=== PATIENT | female | born 1985 | race Two or more races ===

== ENCOUNTER 2024-08-02 14:08 | Emergency (ER) | payer SELFPAY ==
--- NOTE | ~2024-08-02 | US_ITS ---
CLINICAL HISTORY: THREE MONTHS ABDOMINAL PAIN, VOMITING US OB 1st trimester transabdominal Comparison: None Findings: Single intrauterine . CRL: 6.71 cm. EGA: 13 weeks 0 days. YVETTE: 02/07/2025. Previously established gestational age: N/A. Normal yolk sac . Cardiac activity: 161 bpm. No subchorionic bleed. IMPRESSION: Single intrauterine estimated 13 weeks 0 days gestational age by today's ultrasound criteria. This document has been electronically signed by: Tim Peña MD on 08/02/2024 16:22:23
[2024-08-02 14:35] VITALS: BP 127/71; PULSE 77; RESP 16; TEMP 36.7; O2SAT 99; BMI 31.7
--- NOTE | 2024-08-02 14:38 | ED_ITS ---
HPI - General Adult General Chief complaint: Nausea/Vomiting/Diarrhea Stated complaint: , vomitting Time Seen by Provider: 08/02/24 18:45 Source: patient Mode of arrival: ambulatory Limitations: language barrier (Upper Sorbian speaking certified ophthalmic medical technician utilized) History of Present Illness ED Provider: tyler wallis np HPI narrative: Patient is a 38-year-old female G3 T1 L1 with LMP 04/22/2024 presenting for evaluation of nausea and vomiting over the past 2-3 weeks in the setting of . She was last seen by OBGYN in [place] 07/20/2024, she has recently moved here and unfortunately has not yet established health insurance nor OBGYN care as she will be remaining here through the duration of her . She states that she has experienced some nausea and vomiting with her prior pregnancies. It is sporadic throughout the day but typically worse in the morning. She states that there are times throughout the day where she is able to eat and drink without vomiting afterwards. Initial nursing triage states that she ?can not keep anything down? but upon further clarification this is not in fact the case. She has been taking a vitamin. She has had some mild lower abdominal cramping since the beginning of her states that this is no worse than previously, no acute change. Denies associated fevers or chills. No genitourinary symptoms. Denies any known sick contacts Related Data Allergies Allergy/AdvReac Type Severity Reaction Status Date / Time No Known Allergies Allergy Verified 08/02/24 14:38 Review of Systems 2 Review of Systems: Yes all other systems are reviewed and are negative PMFSH Past Medical History Attestation statement: The following information was validated with the patient. Source: old records reviewed Social History Social History Advance Directives: No Advance Directives Information Provided: Yes Do you have a plan to hurt others: No Plan Physical Exam ED Vital Signs: Vital Signs - 24 hr 08/02/24 14:35 08/02/24 19:45 08/02/24 19:48 Temperature 98.1 F 98.2 F 98.2 F Pulse Rate 77 70 70 Respiratory Rate 16 18 18 Blood Pressure 127/71 114/70 114/70 Pulse Oximetry 99 97 97 Oxygen Delivery Method Room Air Room Air Room Air BMI result Body Mass Index 31.7 Appearance: Alert.?Oriented to person, place and time. No acute distress.?Normal affect. Eyes: Pupils equal, round and reactive to light.? ENT: Pharynx normal.?? Neck: Normal inspection.? Neck supple.?? CVS: Heart sounds normal. Normal heart rate and rhythm.? Pulses normal.?? Respiratory: No respiratory distress.? Lung sounds clear to auscultation bilaterally?? Abdomen: Soft and non-tender. Normoactive bowel sounds. No CVAT. Skin: Skin warm and dry.? Normal skin color.? ? Extremities: No lower extremity edema.? Neuro: Moves all extremities spontaneously. Sensation intact bilaterally. Ambulates with normal steady gait. Course Course Course Narrative: rme: 38-YEAR-OLD FEMALE FEMALE LAST MENSTRUATION 112/24 PRESENTS TO ED FOR NAUSEA VOMITING FOR 2 WEEKS WITH ABDOMINAL CRAMPING. PATIENT DENIES ANY VAGINAL BLEEDING. LABS ULTRASOUND ORDERED. Medical Decision Making Medical Decision Making [facility] Narrative: Patient is a 38-year-old female LMP 04/19 presenting for nausea and vomiting in the setting of over the past few weeks, intermittent throughout the day. Has not tried any remedies at home. Discussed the use of vitamin B6 in and Unisom in the evening. She is working on establishing care for OBGYN once she obtains her medical health insurance. Her abdominal examination is benign. She has intermittent abdominal cramping which is brief and episodic has been occurring since early . Ultrasound today shows a single live intrauterine with gestation of 13 weeks. Her viral serologies are negative. No significant electrolyte derangement. No SAMARA. LFTs within normal range, lipase is normal. CBC without leukocytosis or thrombocytopenia, has a mild microcytic anemia that does not meet transfusion criteria no active bleeding. Urinalysis niitially concerning for urogenital contamination, clarification with batch attendant this was in fact NOT a clean catch specimen, on repeat with appropriate cleansing, without compelling evidence of infection. Tolerating oral intake while in the emergency department. At this time stable for discharge home, discussed use of vitamin B6 for nausea and vomiting in , strict return precautions and establishing OBGYN care. Differential Diagnosis Differential Diagnoses: The differential diagnosis associated with the presentation includes (See narrative above) Admission/Observation Consideration of admission/observation: Escalation of care including admission/observation considered (She is tolerating oral intake, no indication for hospitalization due to intractable nausea and vomiting/severe dehydration) Lab Data [facility] Lab Attestation statement: I reviewed the patient's lab results. (See narrative above) 08/02/24 14:54 08/02/24 14:54 Labs: Lab Results 08/02/24 08/02/24 08/02/24 Range/Units 14:54 19:43 20:57 WBC 7.2 (4.8-10.8) X10*3/uL RBC 4.41 (4.20-5.50) X10*6/uL Hgb 11.9 L (12.0-16.0) g/dl Hct 35.2 L (37.0-47.0) % MCV 79.8 L (80.0-98.0) fL MCH 27.0 (27.0-33.0) pg MCHC 33.8 (31.0-35.0) g/dl RDW 15.3 (11.0-16.0) % Plt Count 283 (160-400) X10*3/uL MPV 10.4 (9.4-12.3) fL Immature Gran % (Auto) 0.3 (0.0-0.4) % Neut % (Auto) 68.5 (45-73) % Lymph % (Auto) 23.2 (20-40) % [place] % (Auto) 6.3 (2-11) % Eos % (Auto) 1.4 (0-4) % Baso % (Auto) 0.3 (0-2) % Lymph # (Auto) 1.7 (1.2-4.9) X10*3/uL [place] # (Auto) 0.5 (0.1-1.2) X10*3/uL Eos # (Auto) 0.1 (0.0-0.4) X10*3/uL Baso # (Auto) 0.0 (0.0-0.2) X10*3/uL Abs Immat Gran (auto) 0.02 (0.00-0.03) X10*3/uL Absolute Neuts (auto) 4.9 (2.0-8.3) x10*3/uL Absolute Nucleated RBC 0.000 (0.0-0.012) X10*3/uL Nucleated RBC % (auto) 0.0 (0.0-0.2) /100WBC PT 13.3 H (10.9-12.4) SEC INR 1.1 (0.9-1.1) APTT 27.8 (26.0-36.8) SEC Sodium 136 (135-145) mmol/L Potassium 3.9 (3.3-5.1) mmol/L Chloride 109 H (96-108) mmol/L Carbon Dioxide 20 L (22-29) mmol/L Anion Gap 11 L (12-20) BUN 6 L (9-16) mg/dL Creatinine 0.57 (0.5-1.4) mg/dL Estim Creat Clear Calc 170.0 Estimated GFR > 60 Random Glucose 104 (60-115) mg/dL Calcium 8.8 (8.4-10.2) mg/dL Total Bilirubin 0.5 (0.0-1.0) mg/dL AST 16 (5-31) U/L ALT 17 (0-31) U/L Alkaline Phosphatase 76 (39-117) U/L Total Protein 7.8 (6.5-8.0) g/dL Albumin 3.9 (3.5-5.0) g/dL Lipase 25 (8-78) U/L Beta HCG, Quant 60890 mIU/mL Urine Color Yellow Dark Yellow Urine Appearance Turbid Cloudy Urine pH 5.5 5.5 (5.0-9.0) Ur Specific [place] 1.020 >= 1.030 H (1.005-1.025) Urine Protein Trace Trace (Neg-Trace) mg/dL Urine Glucose (UA) Negative Negative (Negative) mg/dL Urine Ketones Trace Trace (Negative) mg/dL Urine Blood Negative Negative (Negative) Urine Nitrite Negative Negative (Negative) Ur Leukocyte Esterase Moderate (2+) H Trace H (Negative) Urine RBC 0-2 0-2 (0-2) /HPF Urine WBC >50 H 0-5 (0-5) /HPF Ur Squamous Epith Cells >20 3-5 (0-2) /HPF Calcium Oxalate Crystal Present Urine Bacteria 4+ Trace (None Seen) Hyaline Casts 6-10 3-5 (0-2) /LPF Influenza Type A (PCR) NEGATIVE (Negative) Influenza Type B (PCR) NEGATIVE (Negative) RSV RNA Qual (PCR) NEGATIVE (Negative) SARS-CoV-2 RNA (RT-PCR) NEGATIVE (Negative) Blood Type B Positive Independent Interpretation I performed an independent interpretation of an: Ultrasound (Single IUP) Radiology Impression Discussion of test interpretation with radiology: I have reviewed the radiologist's reading. Radiologist Impression: US OB 1st trimester transabdominal Comparison: None Findings: Single intrauterine . CRL: 6.71 cm. EGA: 13 weeks 0 days. YVETTE: 02/07/2025. Previously established gestational age: N/A. Normal yolk sac . Cardiac activity: 161 bpm. No subchorionic bleed. IMPRESSION: Single intrauterine estimated 13 weeks 0 days gestational age by today's ultrasound criteria. Independent Historian Clinical information obtained from an independent historian. History obtained from or confirmed by: Spouse Discharge Plan Discharge Clinical Impression: Nausea and vomiting during Patient Disposition: Home, Self-Care Instructions: Nausea and Vomiting in (ED) Additional Instructions: Please be sure that you are staying well hydrated and drinking plenty of fluid, consume small frequent meals. Purchase [id number] vitamin B6 25 mg to take 3 times daily every 6-8 hours as needed for nausea/vomiting. Please be certain that you follow closely with the process for obtaining your medical health insurance once you receive your social security number. You will additionally need to establish care with an financial reporting consultant locally to continue monitoring the duration of your in the side where you will give . Below I have listed local offices that you may contact to establish care. Please be aware that [facility] does not have a birthing unit so you would not be able to deliver your baby at this hospital should you decide to establish your care here [facility] [address] [address], [place] [address] ? [facility] [address] [place], [place] [id number] [facility] [employer] [address] [place], [place] [id number] [facility] [address] [place] [address] Interventions: ED Discharge Assessment Last Done: 08/02/24 19:48 Discharge Date/Time: 08/02/24 21:39 Print Language: Upper Sorbian
[2024-08-02 14:57] LABS: MANUAL DIFF FLAG NO
[2024-08-02 15:06] LABS: Basophils Percent Auto 0.3 % (0-2); Eosinophils Absolute Auto 0.1 X10*3/uL (0.0-0.4); Eosinophils Percent Auto 1.4 % (0-4); Hematocrit 35.2 % (37.0-47.0); Hemoglobin 11.9 g/dl (12.0-16.0); Imm Gran Abs Auto 0.02 X10*3/uL (0.00-0.03); Imm Gran Pct Auto 0.3 % (0.0-0.4); Lymphocytes Absolute Auto 1.7 X10*3/uL (1.2-4.9); Lymphocytes Percent Auto 23.2 % (20-40); Mean Corpuscular HGB Conc 33.8 g/dl (31.0-35.0); Mean Corpuscular Volume 79.8 fL (80.0-98.0); Mean Platelet Volume 10.4 fL (9.4-12.3); Monocytes Absolute Auto 0.5 X10*3/uL (0.1-1.2); Monocytes Percent Auto 6.3 % (2-11); Neutrophils Absolute Auto 4.9 x10*3/uL (2.0-8.3); Neutrophils Percent Auto 68.5 % (45-73); Platelet Count 283 X10*3/uL (160-400); Red Blood Count 4.41 X10*6/uL (4.20-5.50); Red Cell Distribution Width 15.3 % (11.0-16.0); White Blood Count 7.2 X10*3/uL (4.8-10.8)
[2024-08-02 15:08] LABS: INTERNATIONAL NORM RATIO 1.1 (0.9-1.1); Prothrombin Time 13.3 SEC (10.9-12.4)
[2024-08-02 15:11] LABS: Partial Thromboplastin Time 27.8 SEC (26.0-36.8)
[2024-08-02 15:18] LABS: Alanine Aminotransferase 17 U/L (0-31); Albumin Level 3.9 g/dL (3.5-5.0); Alkaline Phosphatase 76 U/L (39-117); Anion Gap 11 (12-20); Aspartate Amino Transferase 16 U/L (5-31); Bilirubin Total 0.5 mg/dL (0.0-1.0); Blood Urea Nitrogen 6 mg/dL (9-16); Calcium 8.8 mg/dL (8.4-10.2); Carbon Dioxide 20 mmol/L (22-29); Chloride 109 mmol/L (96-108); Estimated Glomerular Filt Rate > 60; Glucose Random 104 mg/dL (60-115); Lipase 25 U/L (8-78); Potassium 3.9 mmol/L (3.3-5.1); Sodium 136 mmol/L (135-145); Total Protein 7.8 g/dL (6.5-8.0)
[2024-08-02 15:55] LABS: HCG Quantitative 43097 mIU/mL
[2024-08-02 18:07] LABS: Influenza A PCR NEGATIVE (Negative); Influenza B PCR NEGATIVE (Negative); Resp Syncy Virus RNA Qual PCR NEGATIVE (Negative); SARS COV2 PCR INHOUSE NEGATIVE (Negative)
[2024-08-02 19:45] VITALS: BP 114/70; PULSE 70; RESP 18; TEMP 36.8; O2SAT 97
[2024-08-02 19:48] VITALS: BP 114/70; PULSE 70; RESP 18; TEMP 36.8; O2SAT 97
[2024-08-02 20:20] LABS: Appearance Urine Turbid; Color Urine Yellow; Glucose Urine UA Negative (Negative); Leukocyte Esterase Urine Moderate (2+) (Negative); Nitrite Urine Negative (Negative); PH 5.5 (5.0-9.0); UMIC TRIGGER UACC YES; Urine Blood Negative (Negative); Urine Ketones Trace mg/dL (Negative); Urine Protein Trace mg/dL (Neg-Trace)
[2024-08-02 20:30] LABS: Bacteria Urine 4+ (None Seen); RBC Urine 0-2 /HPF (0-2); Squamous Epithelial Cell Urine >20 /HPF (0-2); UACC Culture Trigger YES; WBC Urine >50 /HPF (0-5)
[2024-08-02 21:12] LABS: Appearance Urine Cloudy; Color Urine Dark Yellow; Glucose Urine UA Negative (Negative); Leukocyte Esterase Urine Trace (Negative); Nitrite Urine Negative (Negative); PH 5.5 (5.0-9.0); Specific Gravity - Urine >= 1.030 (1.005-1.025); UMIC TRIGGER UACC YES; Urine Blood Negative (Negative); Urine Ketones Trace mg/dL (Negative); Urine Protein Trace mg/dL (Neg-Trace)
[2024-08-02 21:33] LABS: Bacteria Urine Trace (None Seen); Calcium Oxalate Crystals Urine Present; RBC Urine 0-2 /HPF (0-2); WBC Urine 0-5 /HPF (0-5)
--- NOTE | 2024-08-02 21:38 | PC.NURSE ---
per Sylvain SENIOR ORACLE APPLICATIONS DEVELOPER pt is now cleared to leave urine has resulted and requires no further interventions at this time
== END 2024-08-02 21:39 | disposition home or self-care (01) ==
PROVIDERS: Nurse Practitioner Family; Physician Assistant; Emergency Provider Emergency Medicine
DX: O21.0 Mild hyperemesis gravidarum (principal); Z3A.24 24 weeks gestation of pregnancy; R10.2 Pelvic and perineal pain; Z79.899 Other long term (current) drug therapy; Z03.818 Encounter for observation for suspected exposure to other biological agents ruled out
CPT/HCPCS: 0241U; 36415; 76801; 80053; 81001; 81003; 83690; 84702; 85025; 85610; 85730; 86900; 86901; 87086; 99283